=== PATIENT | male | born 1985 | race African-American/Black ===

== ENCOUNTER 2016-09-18 12:51 | Emergency (ER) | payer MEDICAID ==
[2016-09-18 14:04] LABS: BASOPHILS 0.2 % (0-2); EOSINOPHILS 3.4 % (0-7); HEMATOCRIT 35.4 % (42.0-54.0); HEMOGLOBIN 12.6 g/dL (13.5-17.5); IMMATURE GRANULOCYTES 0.1 % (0-5); LYMPHOCYTES 28.2 % (15-50); MCH 30.7 pg (26.0-34.0); MCHC 35.6 g/dL (31.0-37.0); MCV 86.1 fL (80.0-100.0); MEAN PLATELET VOLUME 8.8 fL (7.4-10.4); MONOCYTES 8.6 % (2-11); NEUTROPHILS 59.5 % (40-80); PLATELET COUNT 222 10x3/uL (130-400); RBC 4.11 10x6/uL (4.20-6.10); RDW 12.8 % (11.5-14.5); WBC 9.2 10x3/uL (4.8-10.8)
[2016-09-18 17:04] LABS: ALBUMIN 3.4 g/dL (3.4-5.0); ANION GAP 12.3 mmol/L (8-16); BILIRUBIN - TOTAL 0.43 mg/dL (0.2-1.3); CALCIUM 8.2 mg/dL (8.5-10.1); CREATININE - SERUM 1.3 mg/dL (0.6-1.3); POTASSIUM - SERUM 4.3 mmol/L (3.5-5.1); PROTEIN - SERUM 6.9 g/dL (6.4-8.2)
== END 2016-09-18 17:29 | disposition left against medical advice (07) ==
LOC: D.ER 12:51
PROVIDERS: Family Medicine
DX: Z76.0 Encounter for issue of repeat prescription (principal); E11.9 Type 2 diabetes mellitus without complications; Z79.4 Long term (current) use of insulin; I10 Essential (primary) hypertension

== ENCOUNTER 2017-02-21 07:55 | Emergency (ER) | payer MEDICARE | END 2017-02-21 10:02 | disposition home or self-care (01) | LOC: D.ER 07:55 | DX: J01.90 Acute sinusitis, unspecified (principal); I10 Essential (primary) hypertension; E11.9 Type 2 diabetes mellitus without complications; Z79.4 Long term (current) use of insulin; F17.200 Nicotine dependence, unspecified, uncomplicated ==

== ENCOUNTER 2017-06-24 09:28 | Emergency (ER) | payer MEDICARE | END 2017-06-24 10:55 | disposition home or self-care (01) | LOC: D.ER 09:28 | DX: E11.9 Type 2 diabetes mellitus without complications (principal); Z79.4 Long term (current) use of insulin; Z76.0 Encounter for issue of repeat prescription; I10 Essential (primary) hypertension ==

== ENCOUNTER 2017-08-26 10:15 | Emergency (ER) | payer MEDICARE ==
[~2017-08-26] VITALS: Ht 182.9 cm; Wt 77.3 kg
[2017-08-26 10:19] VITALS: Ht 182.9 cm; Wt 77.3 kg
[2017-08-26] MEDS ORDERED: INSULIN (10:20)
[2017-08-26] MEDS ORDERED: TORADOL10 MG PO (11:10)
[2017-08-26] MEDS ORDERED: CLEOCIN HCL300 MG PO (11:11)
[2017-08-26 11:28] VITALS: BP 122/84
== END 2017-08-26 11:32 | disposition home or self-care (01) ==
LOC: D.ER 10:15
DX: H00.024 Hordeolum internum left upper eyelid (principal); E11.9 Type 2 diabetes mellitus without complications